=== PATIENT | female | born 2000 | race Caucasian/White ===

== ENCOUNTER 2018-12-17 10:35 | Outpatient (CLI) | payer OTHER ==
--- NOTE | 2018-12-17 11:43 | RAD ---
5 views of the cervical spine: 12/17/2018 COMPARISON: None HISTORY: Cervical spine pain FINDINGS: The neutral lateral examination demonstrates normal cervical vertebral body height and alig nment. The flexion imaging and extension imaging demonstrates no significant anterolisthesis or retrolisthesis. The open-mouth odontoid view demonstrates a normal-appearing dens and C1-2 articulation. Alignment ap pears normal on the frontal view. IMPRESSION: No acute osseous abnormality.
== END 2018-12-17 10:36 | disposition home or self-care (01) ==
LOC: RAD 10:35
PROVIDERS: ATTEND Nurse Practitioner Family
DX: M54.2 Cervicalgia (principal)
CPT/HCPCS: 72052